=== PATIENT | male | born 1980 | race Caucasian/White ===

== ENCOUNTER 2017-08-04 19:49 | Emergency (ER) | payer MEDICAID, OTHER ==
[~2017-08-04] VITALS: Ht 177.8 cm; Wt 78.2 kg
[~2017-08-04 19:49] MED LIST: DULO20CA30 PO; GABA-531 PO; INSU100V12 SQ; SERT50TA12 PO; TEMA15CA PO
[2017-08-04 20:37] LABS: GLUCOSE,POINT OF CARE 400 MG/DL (70-110)
[2017-08-04] MEDS ORDERED: SODIUM CHLORIDE 0.9% 1,000 ML IV ONE (20:45)
[2017-08-04] MEDS ORDERED: INSULIN REGULAR, HUMAN 100 UNITS/ML IVP ONE (20:45)
[2017-08-04 21:07] LABS: EOSINOPHILS % (AUTO) 3.4 % (1.0-6.0); HEMATOCRIT 41.8 % (41-53); HEMOGLOBIN 14.1 g/dL (13.5-17.5); LYMPHOCYTES # (AUTO) 2.6 K/uL (1.0-4.8); MEAN CORPUSCULAR HEMOGLOBIN 29.9 pg (26.0-34.0); MEAN CORPUSCULAR HGB CONC 33.8 G/dL (31.0-37.0); MEAN CORPUSCULAR VOLUME 89 fL (80-100); MONOCYTES # (AUTO) 0.6 K/uL (0.1-1.0); MONOCYTES % (AUTO) 7.9 % (2.0-9.0); NEUTROPHILS # (AUTO) 3.6 K/uL (1.8-7.7); NEUTROPHILS % (AUTO) 50.7 % (40.0-70.0); PLATELET COUNT (AUTO) 282 K/uL (150-450); RED BLOOD CELL COUNT(AUTO) 4.72 MIL/uL (4.50-5.90); RED CELL DISTRIBUTION WIDTH 13.5 % (11.5-14.5)
[2017-08-04 21:27] LABS: ALANINE AMINOTRANSFERASE 33 U/L (12-78); ALBUMIN 3.6 g/dL (3.4-5.0); ALKALINE PHOSPHATASE 113 U/L (46-116); ANION GAP 10 mmol/L (8-16); ASPARTATE AMINOTRANSFERASE 25 U/L (15-37); BILIRUBIN,TOTAL 0.9 mg/dL (0.1-1.0); CALCIUM, TOTAL 9.3 mg/dL (8.8-10.5); CARBON DIOXIDE 27 mmol/L (22-29); CHLORIDE 100 mmol/L (98-107); GLOMERULAR FILTR. RATE CALC > 60 mL/min (>60); POTASSIUM 3.5 mmol/L (3.5-5.1); SODIUM SERUM 137 mmol/L (136-145); TOTAL PROTEIN, SERUM 7.6 g/dL (6.4-8.2); UREA NITROGEN, BLOOD 20 mg/dL (7-18)
[2017-08-04 21:31] LABS: GLUCOSE,RANDOM 412 mg/dL (70-110)
[2017-08-04 21:52] LABS: GLUCOSE,POINT OF CARE 113 MG/DL (70-110)
[2017-08-04 22:04] LABS: AMPHET/METH SCREEN,URINE POSITIVE (NEGATIVE); BARBITURATE SCREEN, URINE NEGATIVE (NEGATIVE); BENZODIAZEPINES SCREEN,URINE NEGATIVE (NEGATIVE); CANNABINOID SCREEN,URINE NEGATIVE (NEGATIVE); COCAINE SCREEN,URINE NEGATIVE (NEGATIVE); METHADONE SCREEN, URINE NEGATIVE (NEGATIVE); OPIATE SCREEN,URINE NEGATIVE (NEGATIVE)
[2017-08-04 22:06] LABS: PHENCYCLIDINE SCREEN,URINE NEGATIVE (NEGATIVE)
[2017-08-04 22:12] VITALS: BP 126/84
[2017-08-04 22:13] LABS: APPEARANCE,URINE CLEAR (CLEAR); BILIRUBIN,URINE NEGATIVE (NEGATIVE); GLUCOSE, URINE (UA) >=1000 mg/dL (NEGATIVE); KETONES,URINE 15 mg/dL (NEGATIVE); LEUKOCYTE ESTERASE ,URINE NEGATIVE (NEGATIVE); NITRATE,URINE NEGATIVE (NEGATIVE); OCCULT BLOOD,URINE NEGATIVE (NEGATIVE); PH,URINE 6.5 (5.0-8.0); PROTEIN,URINE NEGATIVE (NEGATIVE)
[2017-08-04 22:21] LABS: RBC,URINE 0-2 /HPF (0-2); WBC,URINE 0-2 /HPF (0-5)
[2017-08-04 22:22] LABS: BACTERIA,URINE Rare /HPF (None Seen); SQUAMOUS EPITHELIAL CELL,UR None Seen /LPF (None Seen)
== END 2017-08-04 22:22 | disposition home or self-care (01) ==
LOC: EMS 19:51
DX: F41.9 Anxiety disorder, unspecified (principal); E11.65 Type 2 diabetes mellitus with hyperglycemia; F15.10 Other stimulant abuse, uncomplicated; F32.9 Major depressive disorder, single episode, unspecified; F17.210 Nicotine dependence, cigarettes, uncomplicated; Z71.6 Tobacco abuse counseling
CPT/HCPCS: 36415; 80053; 80307; 81001; 82948; 82962; 85025; 96361; 96374; 99284; 99406; J1815; J7030

== ENCOUNTER 2017-08-06 07:52 | Emergency (ER) | payer OTHER ==
[~2017-08-06] VITALS: Ht 177.8 cm; Wt 72.7 kg
[2017-08-06 08:08] LABS: GLUCOSE,POINT OF CARE 224 MG/DL (70-110)
[2017-08-06 08:25] VITALS: BP 119/73
== END 2017-08-06 08:37 | disposition home or self-care (01) ==
LOC: EMS 07:54
DX: F32.9 Major depressive disorder, single episode, unspecified (principal); E11.9 Type 2 diabetes mellitus without complications; M79.89 Other specified soft tissue disorders; F17.210 Nicotine dependence, cigarettes, uncomplicated; Z59.0 Homelessness; Z79.4 Long term (current) use of insulin
CPT/HCPCS: 82962; 99284; 99406

== ENCOUNTER 2017-09-12 12:41 | Emergency (ER) | payer OTHER ==
[~2017-09-12] VITALS: Ht 177.8 cm; Wt 75.0 kg
[2017-09-12 12:52] LABS: GLUCOSE,POINT OF CARE 493 MG/DL (70-110)
[2017-09-12] MEDS ORDERED: SODIUM CHLORIDE 0.9% 1,000 ML IV ONE (13:00)
[2017-09-12 14:12] LABS: ANION GAP 9 mmol/L (8-16); CALCIUM, TOTAL 9.2 mg/dL (8.8-10.5); CARBON DIOXIDE 29 mmol/L (22-29); CHLORIDE 97 mmol/L (98-107); CREATININE 0.96 mg/dL (0.60-1.30); GLOMERULAR FILTR. RATE CALC > 60 mL/min (>60); SODIUM SERUM 135 mmol/L (136-145); UREA NITROGEN, BLOOD 19 mg/dL (7-18)
[2017-09-12 14:15] LABS: GLUCOSE,RANDOM 429 mg/dL (70-110)
[2017-09-12 15:38] VITALS: BP 110/87
[2017-09-12 15:38] LABS: GLUCOSE,POINT OF CARE 255 MG/DL (70-110)
[2017-09-15] MEDS ORDERED: INSU100I26 (12:57)
== END 2017-09-12 16:12 | disposition home or self-care (01) ==
LOC: EMS 12:45
DX: E11.65 Type 2 diabetes mellitus with hyperglycemia (principal); F17.210 Nicotine dependence, cigarettes, uncomplicated; F12.90 Cannabis use, unspecified, uncomplicated; F19.90 Other psychoactive substance use, unspecified, uncomplicated; Z79.4 Long term (current) use of insulin
CPT/HCPCS: 36415; 80048; 82962; 96360; 99284; J7030

== ENCOUNTER 2018-08-11 13:11 | Inpatient (IN) | payer MEDICAID, OTHER ==
[~2018-08-11] VITALS: Ht 172.7 cm; Wt 79.8 kg
[~2018-08-11 13:11] MED LIST changes: +INSU100I26
[2018-08-11] MEDS ORDERED: OXCA300T46 PO (13:33)
[2018-08-11] MEDS ORDERED: INSU100V SQ (13:33)
[2018-08-11] MEDS ORDERED: QUET25TA PO (13:33)
[2018-08-11] MEDS ORDERED: INSLAN SQ (13:33)
[2018-08-11] MEDS ORDERED: SODIUM CHLORIDE 0.9% 1,000 ML IV ONE ×2 (13:45→14:45)
[2018-08-11 14:22] LABS: BASOPHILS % (AUTO) 1.2 % (0.0-2.0); EOSINOPHILS % (AUTO) 1.3 % (1.0-6.0); HEMATOCRIT 43.8 % (41-53); HEMOGLOBIN 14.7 g/dL (13.5-17.5); LYMPHOCYTES # (AUTO) 1.4 K/uL (1.0-4.8); LYMPHOCYTES % (AUTO) 22.5 % (22.0-44.0); MEAN CORPUSCULAR HEMOGLOBIN 29.7 pg (26.0-34.0); MEAN CORPUSCULAR HGB CONC 33.6 G/dL (31.0-37.0); MEAN CORPUSCULAR VOLUME 88 fL (80-100); MONOCYTES # (AUTO) 0.3 K/uL (0.1-1.0); MONOCYTES % (AUTO) 4.9 % (2.0-9.0); NEUTROPHILS # (AUTO) 4.5 K/uL (1.8-7.7); NEUTROPHILS % (AUTO) 70.1 % (40.0-70.0); PLATELET COUNT (AUTO) 241 K/uL (150-450); RED BLOOD CELL COUNT(AUTO) 4.96 MIL/uL (4.50-5.90)
[2018-08-11 14:34] LABS: ANION GAP 14 mmol/L (8-16); CALCIUM, TOTAL 8.7 mg/dL (8.8-10.5); CARBON DIOXIDE 19 mmol/L (22-29); CHLORIDE 98 mmol/L (98-107); CREATININE 0.91 mg/dL (0.60-1.30); GLOMERULAR FILTR. RATE CALC > 60 mL/min (>60); GLUCOSE,RANDOM 365 mg/dL (70-110); POTASSIUM 4.3 mmol/L (3.5-5.1); SODIUM SERUM 131 mmol/L (136-145); UREA NITROGEN, BLOOD 18 mg/dL (7-18)
[2018-08-11 14:38] LABS: ALANINE AMINOTRANSFERASE 22 U/L (12-78); ALBUMIN 3.1 g/dL (3.4-5.0); ALKALINE PHOSPHATASE 106 U/L (46-116); ASPARTATE AMINOTRANSFERASE 14 U/L (15-37); BILIRUBIN,TOTAL 0.5 mg/dL (0.1-1.0); TOTAL PROTEIN, SERUM 6.6 g/dL (6.4-8.2)
[2018-08-11] MEDS ORDERED: INSULIN REGULAR, HUMAN 100 UNITS/ML IVP ONE (14:45)
[2018-08-11 15:39] LABS: GLUCOSE,POINT OF CARE 291 MG/DL (70-110)
[2018-08-11] MEDS ORDERED: HALOPERIDOL 5 MG TABLET PO PRN (17:00)
[2018-08-11 17:08] LABS: AMPHET/METH SCREEN,URINE POSITIVE (NEGATIVE); BARBITURATE SCREEN, URINE NEGATIVE (NEGATIVE); BENZODIAZEPINES SCREEN,URINE NEGATIVE (NEGATIVE); CANNABINOID SCREEN,URINE NEGATIVE (NEGATIVE); COCAINE SCREEN,URINE NEGATIVE (NEGATIVE); METHADONE SCREEN, URINE NEGATIVE (NEGATIVE); OPIATE SCREEN,URINE NEGATIVE (NEGATIVE)
[2018-08-11 17:09] LABS: PHENCYCLIDINE SCREEN,URINE NEGATIVE (NEGATIVE)
[2018-08-11 18:38] LABS: GLUCOSE,POINT OF CARE 243 MG/DL (70-110)
[2018-08-11 18:58] LABS: GLUCOSE,POINT OF CARE 212 MG/DL (70-110)
[2018-08-11 23:34] VITALS: BP 135/85
[2018-08-12 05:29] LABS: CHOL/HDL RATIO 6.1 (4.2-7.3); FREE T4 (FREE THYROXINE) 0.88 ng/dL (0.76-1.46); THYROID STIMULATING HORMONE 0.4 uIU/mL (0.36-3.74)
[2018-08-12 08:39] VITALS: BP 119/97
[2018-08-12] MEDS ORDERED: INSULIN LISPRO 100 UNITS/ML SQ PRN (09:00)
[2018-08-12] MEDS ORDERED: DEXTROSE 50%-WATER 25 GM/50 ML SYRINGE IVP PRN ×2 (09:00→15:45)
[2018-08-12] MEDS ORDERED: INSULIN LISPRO 100 UNITS/ML SQ ONE ×3 (12:00→15:45)
[2018-08-12] MEDS: QUEtiapine FUMARATE 25 MG TABLET PO SCH ×2 (12:00→17:12)
[2018-08-12 12:06] LABS: GLUCOMETER DEV NAME(LOC) AHU.; GLUCOSE,POINT OF CARE 429 MG/DL (70-110)
[2018-08-12 13:25] LABS: GLUCOMETER DEV NAME(LOC) AHU.; GLUCOSE,POINT OF CARE 377 MG/DL (70-110)
[2018-08-12 15:09] LABS: GLUCOMETER DEV NAME(LOC) AHU.; GLUCOSE,POINT OF CARE 411 MG/DL (70-110)
[2018-08-12 17:00] VITALS: BP 103/75
[2018-08-12] MEDS: INSULIN LISPRO 100 UNITS/ML SQ PRN ×2 (17:18→21:11)
[2018-08-12 17:21] LABS: GLUCOMETER DEV NAME(LOC) 3E.I; GLUCOSE,POINT OF CARE 256 MG/DL (70-110)
[2018-08-12] MEDS ORDERED: BENZOCAINE/MENTHOL LOZENGE MM PRN (19:15)
[2018-08-12] MEDS ORDERED: ACETAMINOPHEN 325 MG TABLET PO PRN (19:15)
[2018-08-12] MEDS ORDERED: MAG HYDROX/AL HYDROX/SIMETH ES 30 ML SUSPENSION UDCUP PO PRN (19:15)
[2018-08-12] MEDS ORDERED: IBUPROFEN 600 MG TABLET PO PRN (19:15)
[2018-08-12] MEDS ORDERED: ONDANSETRON HCL 4 MG TABLET PO PRN (19:15)
[2018-08-12] MEDS ORDERED: LOPERAMIDE HCL 2 MG CAPSULE PO PRN (19:15)
[2018-08-12] MEDS ORDERED: MAGNESIUM HYDROXIDE SUSPENSION 30 ML UDCUP PO PRN (19:15)
[2018-08-12] MEDS ORDERED: BACITRACIN 28.4 GM OINTMENT TP PRN (19:15)
[2018-08-12] MEDS ORDERED: PETROLATUM,WHITE 71 GM JELLY TP PRN (19:15)
[2018-08-12] MEDS ORDERED: CloNIDine HCL 0.1 MG TABLET PO PRN (19:15)
[2018-08-12] MEDS ORDERED: ALBUTEROL SULFATE HFA 90 MCG/PUFF 8 GM INHALER IH PRN (19:15)
[2018-08-12] MEDS ORDERED: OMEPRAZOLE 20 MG CAPSULE PO PRN (19:15)
[2018-08-12] MEDS ORDERED: DOCUSATE SODIUM 100 MG CAPSULE PO PRN (19:15)
[2018-08-12 20:32] LABS: GLUCOMETER DEV NAME(LOC) 3E.I; GLUCOSE,POINT OF CARE 272 MG/DL (70-110)
[2018-08-12] MEDS ORDERED: INSULIN HUMAN NPH-REGULAR 70/30 100 UNITS/ML SQ SCH (21:00)
[2018-08-12] MEDS: INSULIN GLARGINE,HUM.REC.ANLOG 100 UNITS/ML SQ SCH (21:10)
[2018-08-12] MEDS: SIMVASTATIN 10 MG TABLET PO SCH (21:12)
[2018-08-12] MEDS: QUEtiapine FUMARATE 100 MG TABLET PO SCH (21:12)
[2018-08-13 06:09] LABS: GLUCOMETER DEV NAME(LOC) 3E.I; GLUCOSE,POINT OF CARE 331 MG/DL (70-110)
[2018-08-13] MEDS: INSULIN LISPRO 100 UNITS/ML SQ PRN ×3 (07:11→21:05)
[2018-08-13] MEDS: QUEtiapine FUMARATE 25 MG TABLET PO SCH ×2 (08:44→16:55)
[2018-08-13] MEDS: OMEGA-3/DHA/EPA/FISH OIL 1,000 MG CAPSULE PO SCH (08:44)
[2018-08-13] MEDS: LORazepam 2 MG TABLET PO PRN ×2 (08:45→16:55)
[2018-08-13 11:06] VITALS: BP 111/81
[2018-08-13 13:33] LABS: GLUCOMETER DEV NAME(LOC) 3E.I; GLUCOSE,POINT OF CARE 166 MG/DL (70-110)
[2018-08-13 16:59] LABS: GLUCOMETER DEV NAME(LOC) 3E.I; GLUCOSE,POINT OF CARE 291 MG/DL (70-110)
[2018-08-13 17:30] VITALS: BP 95/46
[2018-08-13] MEDS: QUEtiapine FUMARATE 100 MG TABLET PO SCH (21:05)
[2018-08-13] MEDS: INSULIN GLARGINE,HUM.REC.ANLOG 100 UNITS/ML SQ SCH (21:05)
[2018-08-13] MEDS: SIMVASTATIN 10 MG TABLET PO SCH (21:05)
[2018-08-13] MEDS: ZOLPIDEM TARTRATE 10 MG TABLET PO PRN (21:06)
[2018-08-13 22:13] LABS: GLUCOMETER DEV NAME(LOC) 3E.I; GLUCOSE,POINT OF CARE 270 MG/DL (70-110)
[2018-08-14 06:19] LABS: GLUCOMETER DEV NAME(LOC) 3E.I; GLUCOSE,POINT OF CARE 272 MG/DL (70-110)
[2018-08-14] MEDS: INSULIN LISPRO 100 UNITS/ML SQ PRN ×4 (07:07→21:39)
[2018-08-14] MEDS: OMEGA-3/DHA/EPA/FISH OIL 1,000 MG CAPSULE PO SCH (09:26)
[2018-08-14] MEDS: QUEtiapine FUMARATE 25 MG TABLET PO SCH ×2 (09:26→17:04)
[2018-08-14 10:01] VITALS: BP 109/69
[2018-08-14 11:28] LABS: GLUCOMETER DEV NAME(LOC) 3E.I; GLUCOSE,POINT OF CARE 270 MG/DL (70-110)
[2018-08-14] MEDS: LORazepam 2 MG TABLET PO PRN ×2 (11:59→17:04)
[2018-08-14 17:44] LABS: GLUCOMETER DEV NAME(LOC) 3E.I; GLUCOSE,POINT OF CARE 338 MG/DL (70-110)
[2018-08-14 20:49] VITALS: BP 120/67
[2018-08-14] MEDS: SIMVASTATIN 10 MG TABLET PO SCH (21:19)
[2018-08-14] MEDS: QUEtiapine FUMARATE 100 MG TABLET PO SCH (21:19)
[2018-08-14] MEDS: INSULIN GLARGINE,HUM.REC.ANLOG 100 UNITS/ML SQ SCH (21:38)
[2018-08-14 21:48] LABS: GLUCOMETER DEV NAME(LOC) 3E.I; GLUCOSE,POINT OF CARE 192 MG/DL (70-110)
[2018-08-15 06:04] LABS: GLUCOMETER DEV NAME(LOC) 3E.I; GLUCOSE,POINT OF CARE 303 MG/DL (70-110)
[2018-08-15] MEDS: INSULIN LISPRO 100 UNITS/ML SQ PRN ×4 (07:01→21:28)
[2018-08-15] MEDS: OMEGA-3/DHA/EPA/FISH OIL 1,000 MG CAPSULE PO SCH (09:13)
[2018-08-15] MEDS: LORazepam 2 MG TABLET PO PRN ×2 (09:13→16:38)
[2018-08-15] MEDS: QUEtiapine FUMARATE 25 MG TABLET PO SCH ×2 (09:14→16:26)
[2018-08-15] MEDS: INSULIN GLARGINE,HUM.REC.ANLOG 100 UNITS/ML SQ SCH ×2 (09:26→21:26)
[2018-08-15 09:59] VITALS: BP 101/66
[2018-08-15 11:29] LABS: GLUCOMETER DEV NAME(LOC) 3E.I; GLUCOSE,POINT OF CARE 268 MG/DL (70-110)
[2018-08-15 16:23] LABS: GLUCOMETER DEV NAME(LOC) 3EX.; GLUCOSE,POINT OF CARE 253 MG/DL (70-110)
[2018-08-15 16:25] VITALS: BP 107/73
[2018-08-15] MEDS: SIMVASTATIN 10 MG TABLET PO SCH (20:47)
[2018-08-15] MEDS: QUEtiapine FUMARATE 100 MG TABLET PO SCH (20:47)
[2018-08-15 21:18] LABS: GLUCOMETER DEV NAME(LOC) 3EX.; GLUCOSE,POINT OF CARE 440 MG/DL (70-110)
[2018-08-15 22:19] LABS: GLUCOMETER DEV NAME(LOC) 3EX.; GLUCOSE,POINT OF CARE 385 MG/DL (70-110)
[2018-08-16 06:03] LABS: GLUCOMETER DEV NAME(LOC) 3EX.; GLUCOSE,POINT OF CARE 283 MG/DL (70-110)
[2018-08-16] MEDS: INSULIN LISPRO 100 UNITS/ML SQ PRN ×4 (06:38→20:10)
[2018-08-16] MEDS: OMEGA-3/DHA/EPA/FISH OIL 1,000 MG CAPSULE PO SCH (09:12)
[2018-08-16] MEDS: LORazepam 2 MG TABLET PO PRN ×2 (09:14→17:32)
[2018-08-16] MEDS: QUEtiapine FUMARATE 25 MG TABLET PO SCH ×2 (09:14→16:09)
[2018-08-16] MEDS: INSULIN GLARGINE,HUM.REC.ANLOG 100 UNITS/ML SQ SCH ×2 (09:31→20:13)
[2018-08-16 10:52] VITALS: BP 105/66
[2018-08-16 11:29] LABS: GLUCOMETER DEV NAME(LOC) 3EX.; GLUCOSE,POINT OF CARE 302 MG/DL (70-110)
[2018-08-16 16:19] LABS: GLUCOMETER DEV NAME(LOC) 3EX.; GLUCOSE,POINT OF CARE 301 MG/DL (70-110)
[2018-08-16 17:36] VITALS: BP 110/63
[2018-08-16 20:14] LABS: GLUCOMETER DEV NAME(LOC) 3EX.; GLUCOSE,POINT OF CARE 199 MG/DL (70-110)
[2018-08-16] MEDS: QUEtiapine FUMARATE 100 MG TABLET PO SCH (20:14)
[2018-08-16] MEDS: SIMVASTATIN 10 MG TABLET PO SCH (20:14)
[2018-08-16] MEDS: ZOLPIDEM TARTRATE 10 MG TABLET PO PRN (20:32)
[2018-08-17 06:04] LABS: GLUCOMETER DEV NAME(LOC) 3EX.; GLUCOSE,POINT OF CARE 376 MG/DL (70-110)
[2018-08-17] MEDS: INSULIN LISPRO 100 UNITS/ML SQ PRN ×4 (07:00→21:30)
[2018-08-17 08:05] VITALS: BP 103/71
[2018-08-17] MEDS ORDERED: INSULIN GLARGINE,HUM.REC.ANLOG 100 UNITS/ML SQ SCH (09:00)
[2018-08-17] MEDS: OMEGA-3/DHA/EPA/FISH OIL 1,000 MG CAPSULE PO SCH (09:08)
[2018-08-17] MEDS: QUEtiapine FUMARATE 200 MG TABLET PO SCH ×2 (09:08→20:10)
[2018-08-17] MEDS: LORazepam 2 MG TABLET PO PRN ×2 (09:16→16:31)
[2018-08-17 11:28] LABS: GLUCOMETER DEV NAME(LOC) 3EX.; GLUCOSE,POINT OF CARE 324 MG/DL (70-110)
[2018-08-17 16:00] VITALS: BP 109/56
[2018-08-17 16:33] LABS: GLUCOMETER DEV NAME(LOC) 3EX.; GLUCOSE,POINT OF CARE 371 MG/DL (70-110)
[2018-08-17] MEDS: SIMVASTATIN 10 MG TABLET PO SCH (20:10)
[2018-08-17 20:18] LABS: GLUCOMETER DEV NAME(LOC) 3EX.; GLUCOSE,POINT OF CARE 407 MG/DL (70-110)
[2018-08-17 20:33] LABS: GLUCOMETER DEV NAME(LOC) 3EX.; GLUCOSE,POINT OF CARE 452 MG/DL (70-110)
[2018-08-17] MEDS: ZOLPIDEM TARTRATE 10 MG TABLET PO PRN (20:49)
[2018-08-17] MEDS: INSULIN GLARGINE,HUM.REC.ANLOG 100 UNITS/ML SQ SCH (20:49)
[2018-08-17 22:19] LABS: GLUCOMETER DEV NAME(LOC) 3EX.; GLUCOSE,POINT OF CARE 455 MG/DL (70-110)
[2018-08-18 06:19] LABS: GLUCOMETER DEV NAME(LOC) 3EX.; GLUCOSE,POINT OF CARE 268 MG/DL (70-110)
[2018-08-18] MEDS: INSULIN LISPRO 100 UNITS/ML SQ PRN ×4 (06:45→20:14)
[2018-08-18] MEDS: INSULIN GLARGINE,HUM.REC.ANLOG 100 UNITS/ML SQ SCH ×2 (08:53→20:14)
[2018-08-18] MEDS: LORazepam 2 MG TABLET PO PRN ×2 (08:53→16:31)
[2018-08-18] MEDS: QUEtiapine FUMARATE 200 MG TABLET PO SCH ×2 (08:54→20:06)
[2018-08-18] MEDS: OMEGA-3/DHA/EPA/FISH OIL 1,000 MG CAPSULE PO SCH (08:54)
[2018-08-18 08:57] VITALS: BP 107/65
[2018-08-18 11:24] LABS: GLUCOMETER DEV NAME(LOC) 3EX.; GLUCOSE,POINT OF CARE 331 MG/DL (70-110)
[2018-08-18 16:23] LABS: GLUCOMETER DEV NAME(LOC) 3EX.; GLUCOSE,POINT OF CARE 347 MG/DL (70-110)
[2018-08-18 19:23] VITALS: BP 103/62
[2018-08-18] MEDS: SIMVASTATIN 10 MG TABLET PO SCH (20:06)
[2018-08-18 20:28] LABS: GLUCOMETER DEV NAME(LOC) 3EX.; GLUCOSE,POINT OF CARE 381 MG/DL (70-110)
[2018-08-18] MEDS: ZOLPIDEM TARTRATE 10 MG TABLET PO PRN (20:45)
[2018-08-19 05:39] LABS: GLUCOMETER DEV NAME(LOC) 3EX.; GLUCOSE,POINT OF CARE 261 MG/DL (70-110)
[2018-08-19] MEDS: INSULIN LISPRO 100 UNITS/ML SQ PRN ×3 (07:07→20:08)
[2018-08-19] MEDS: OMEGA-3/DHA/EPA/FISH OIL 1,000 MG CAPSULE PO SCH (08:16)
[2018-08-19] MEDS: INSULIN GLARGINE,HUM.REC.ANLOG 100 UNITS/ML SQ SCH ×2 (08:16→20:08)
[2018-08-19] MEDS: LORazepam 2 MG TABLET PO PRN ×2 (08:17→16:33)
[2018-08-19] MEDS: QUEtiapine FUMARATE 200 MG TABLET PO SCH ×2 (08:17→20:09)
[2018-08-19 10:12] VITALS: BP 105/68
[2018-08-19 11:18] LABS: GLUCOMETER DEV NAME(LOC) 3EX.; GLUCOSE,POINT OF CARE 281 MG/DL (70-110)
[2018-08-19] MEDS: SERTRALINE HCL 50 MG TABLET PO SCH (14:53)
[2018-08-19 16:32] VITALS: BP 105/52
[2018-08-19 16:38] LABS: GLUCOMETER DEV NAME(LOC) 3EX.; GLUCOSE,POINT OF CARE 316 MG/DL (70-110)
[2018-08-19] MEDS: SIMVASTATIN 10 MG TABLET PO SCH (20:02)
[2018-08-19 20:25] LABS: GLUCOMETER DEV NAME(LOC) 3EX.; GLUCOSE,POINT OF CARE 316 MG/DL (70-110)
[2018-08-20 05:29] LABS: GLUCOMETER DEV NAME(LOC) 3EX.; GLUCOSE,POINT OF CARE 223 MG/DL (70-110)
[2018-08-20] MEDS: INSULIN LISPRO 100 UNITS/ML SQ PRN ×4 (06:43→20:30)
[2018-08-20] MEDS: INSULIN GLARGINE,HUM.REC.ANLOG 100 UNITS/ML SQ SCH ×3 (08:11→21:05)
[2018-08-20] MEDS: QUEtiapine FUMARATE 200 MG TABLET PO SCH ×2 (08:12→20:25)
[2018-08-20] MEDS: SERTRALINE HCL 50 MG TABLET PO SCH (08:12)
[2018-08-20] MEDS: OMEGA-3/DHA/EPA/FISH OIL 1,000 MG CAPSULE PO SCH (08:13)
[2018-08-20 08:26] VITALS: BP 116/72
[2018-08-20] MEDS: LORazepam 2 MG TABLET PO PRN ×2 (08:27→12:35)
[2018-08-20 11:18] LABS: GLUCOMETER DEV NAME(LOC) 3EX.; GLUCOSE,POINT OF CARE 291 MG/DL (70-110)
[2018-08-20 16:23] LABS: GLUCOMETER DEV NAME(LOC) 3EX.; GLUCOSE,POINT OF CARE 374 MG/DL (70-110)
[2018-08-20 18:48] VITALS: BP 124/71
[2018-08-20 20:13] LABS: GLUCOMETER DEV NAME(LOC) 3EX.; GLUCOSE,POINT OF CARE 452 MG/DL (70-110)
[2018-08-20] MEDS ORDERED: INSULIN LISPRO 100 UNITS/ML SQ ONE (20:15)
[2018-08-20] MEDS: SIMVASTATIN 10 MG TABLET PO SCH (20:25)
[2018-08-20 21:13] LABS: GLUCOMETER DEV NAME(LOC) 3EX.; GLUCOSE,POINT OF CARE 457 MG/DL (70-110)
[2018-08-21 06:24] LABS: GLUCOMETER DEV NAME(LOC) 3EX.; GLUCOSE,POINT OF CARE 257 MG/DL (70-110)
[2018-08-21] MEDS: INSULIN LISPRO 100 UNITS/ML SQ PRN ×3 (07:01→17:12)
[2018-08-21 08:04] VITALS: BP 109/60
[2018-08-21] MEDS: OMEGA-3/DHA/EPA/FISH OIL 1,000 MG CAPSULE PO SCH (08:26)
[2018-08-21] MEDS: LORazepam 2 MG TABLET PO PRN ×2 (08:26→14:13)
[2018-08-21] MEDS: SERTRALINE HCL 50 MG TABLET PO SCH (08:26)
[2018-08-21] MEDS: QUEtiapine FUMARATE 200 MG TABLET PO SCH ×2 (08:26→20:15)
[2018-08-21] MEDS: INSULIN GLARGINE,HUM.REC.ANLOG 100 UNITS/ML SQ SCH ×2 (08:29→22:00)
[2018-08-21 11:03] LABS: GLUCOMETER DEV NAME(LOC) 3EX.; GLUCOSE,POINT OF CARE 439 MG/DL (70-110)
[2018-08-21 11:34] LABS: GLUCOMETER DEV NAME(LOC) 3EX.; GLUCOSE,POINT OF CARE 397 MG/DL (70-110)
[2018-08-21] MEDS ORDERED: INSULIN LISPRO 100 UNITS/ML SQ ONE ×2 (12:30→20:45)
[2018-08-21 16:08] LABS: GLUCOMETER DEV NAME(LOC) 3EX.; GLUCOSE,POINT OF CARE 304 MG/DL (70-110)
[2018-08-21 17:00] VITALS: BP 99/63
[2018-08-21] MEDS: SIMVASTATIN 10 MG TABLET PO SCH (20:15)
[2018-08-21 20:18] LABS: GLUCOMETER DEV NAME(LOC) 3EX.; GLUCOSE,POINT OF CARE 445 MG/DL (70-110)
[2018-08-21 22:03] LABS: GLUCOMETER DEV NAME(LOC) 3EX.; GLUCOSE,POINT OF CARE 293 MG/DL (70-110)
[2018-08-22 05:53] LABS: GLUCOMETER DEV NAME(LOC) 3EX.; GLUCOSE,POINT OF CARE 135 MG/DL (70-110)
[2018-08-22] MEDS: INSULIN LISPRO 100 UNITS/ML SQ PRN ×4 (06:05→21:11)
[2018-08-22] MEDS: QUEtiapine FUMARATE 200 MG TABLET PO SCH ×2 (08:02→20:20)
[2018-08-22] MEDS: OMEGA-3/DHA/EPA/FISH OIL 1,000 MG CAPSULE PO SCH (08:02)
[2018-08-22] MEDS: LORazepam 2 MG TABLET PO PRN ×3 (08:02→17:43)
[2018-08-22] MEDS: SERTRALINE HCL 50 MG TABLET PO SCH (08:02)
[2018-08-22] MEDS: INSULIN GLARGINE,HUM.REC.ANLOG 100 UNITS/ML SQ SCH ×2 (08:04→21:10)
[2018-08-22 08:14] LABS: GLUCOMETER DEV NAME(LOC) 3EX.; GLUCOSE,POINT OF CARE 282 MG/DL (70-110)
[2018-08-22 08:23] VITALS: BP 104/63
[2018-08-22 11:24] LABS: GLUCOMETER DEV NAME(LOC) 3EX.; GLUCOSE,POINT OF CARE 388 MG/DL (70-110)
[2018-08-22 16:59] LABS: GLUCOMETER DEV NAME(LOC) 3EX.; GLUCOSE,POINT OF CARE 226 MG/DL (70-110)
[2018-08-22 17:00] VITALS: BP 107/66
[2018-08-22] MEDS: ZOLPIDEM TARTRATE 10 MG TABLET PO PRN (20:20)
[2018-08-22] MEDS: SIMVASTATIN 10 MG TABLET PO SCH (20:20)
[2018-08-22 20:43] LABS: GLUCOMETER DEV NAME(LOC) 3EX.; GLUCOSE,POINT OF CARE 355 MG/DL (70-110)
[2018-08-23 06:13] LABS: GLUCOMETER DEV NAME(LOC) 3EX.; GLUCOSE,POINT OF CARE 160 MG/DL (70-110)
[2018-08-23] MEDS: INSULIN LISPRO 100 UNITS/ML SQ PRN ×4 (07:03→21:24)
[2018-08-23] MEDS: LORazepam 2 MG TABLET PO PRN ×2 (08:18→15:47)
[2018-08-23] MEDS: SERTRALINE HCL 50 MG TABLET PO SCH (08:18)
[2018-08-23] MEDS: QUEtiapine FUMARATE 200 MG TABLET PO SCH ×2 (08:19→20:06)
[2018-08-23] MEDS: OMEGA-3/DHA/EPA/FISH OIL 1,000 MG CAPSULE PO SCH (08:19)
[2018-08-23] MEDS: INSULIN GLARGINE,HUM.REC.ANLOG 100 UNITS/ML SQ SCH ×2 (08:21→21:25)
[2018-08-23 09:11] VITALS: BP 108/69
[2018-08-23 11:43] LABS: GLUCOMETER DEV NAME(LOC) 3EX.; GLUCOSE,POINT OF CARE 270 MG/DL (70-110)
[2018-08-23 16:39] LABS: GLUCOMETER DEV NAME(LOC) 3EX.; GLUCOSE,POINT OF CARE 234 MG/DL (70-110)
[2018-08-23 18:03] VITALS: BP 105/66
[2018-08-23] MEDS: SIMVASTATIN 10 MG TABLET PO SCH (20:06)
[2018-08-23] MEDS: ZOLPIDEM TARTRATE 10 MG TABLET PO PRN (20:06)
[2018-08-23 20:13] LABS: GLUCOMETER DEV NAME(LOC) 3EX.; GLUCOSE,POINT OF CARE 345 MG/DL (70-110)
[2018-08-24 06:34] LABS: GLUCOMETER DEV NAME(LOC) 3EX.; GLUCOSE,POINT OF CARE 168 MG/DL (70-110)
[2018-08-24] MEDS: INSULIN LISPRO 100 UNITS/ML SQ PRN ×2 (06:49→11:43)
[2018-08-24] MEDS: OMEGA-3/DHA/EPA/FISH OIL 1,000 MG CAPSULE PO SCH (08:20)
[2018-08-24] MEDS: SERTRALINE HCL 50 MG TABLET PO SCH (08:21)
[2018-08-24] MEDS: QUEtiapine FUMARATE 200 MG TABLET PO SCH (08:21)
[2018-08-24] MEDS: LORazepam 2 MG TABLET PO PRN (08:23)
[2018-08-24 08:45] VITALS: BP 110/64
[2018-08-24] MEDS: INSULIN GLARGINE,HUM.REC.ANLOG 100 UNITS/ML SQ SCH (08:55)
[2018-08-24 11:44] LABS: GLUCOMETER DEV NAME(LOC) 3EX.; GLUCOSE,POINT OF CARE 333 MG/DL (70-110)
[2018-08-24] MEDS ORDERED: QUET200T29 PO (12:12)
[2018-08-24] MEDS ORDERED: SERT50TA12 PO (12:12)
[2018-08-24] MEDS ORDERED: INSLAN SQ ×2 (13:19)
[2018-08-24] MEDS ORDERED: OMEG-135 PO (13:20)
[2018-08-24] MEDS ORDERED: SIMV-259 PO (13:20)
== END 2018-08-24 15:10 | disposition home or self-care (01) | DRG 750 ==
LOC: EMS 13:12 → AHU 22:00 → 3EI 08-12 16:17
DX: F25.1 Schizoaffective disorder, depressive type (principal); E10.65 Type 1 diabetes mellitus with hyperglycemia; R45.851 Suicidal ideations; E78.5 Hyperlipidemia, unspecified; F15.10 Other stimulant abuse, uncomplicated; F41.9 Anxiety disorder, unspecified; F90.9 Attention-deficit hyperactivity disorder, unspecified type; G47.00 Insomnia, unspecified; K59.00 Constipation, unspecified; Z59.0 Homelessness; Z79.4 Long term (current) use of insulin; Z79.899 Other long term (current) drug therapy; Z91.5 Personal history of self-harm; Z71.51 Drug abuse counseling and surveillance of drug abuser; Z28.21 Immunization not carried out because of patient refusal
CPT/HCPCS: 83036; 84439; 84443; 96361; 96374; G0378; G0480; J1815; J7030

== ENCOUNTER 2019-11-20 05:08 | Inpatient (IN) | payer MEDICAID ==
[~2019-11-20 05:08] MED LIST changes: -DULO20CA30 PO; -GABA-531 PO; +INSLAN SQ; -INSU100I26; -INSU100V12 SQ; +OMEG-135 PO; +QUET200T29 PO; +SIMV-259 PO; -TEMA15CA PO
[2019-11-20] MEDS ORDERED: HALOPERIDOL 5 MG TABLET PO PRN (09:45)
[2019-11-20 10:00] VITALS: BP 103/65
[2019-11-20 10:48] VITALS: BP 90/58
[2019-11-20] MEDS ORDERED: QUET100T PO (11:13)
[2019-11-20] MEDS ORDERED: FLUO-191 PO (11:13)
[2019-11-20] MEDS ORDERED: PRAZ1 PO (11:14)
[2019-11-20] MEDS ORDERED: PNEUMOCOCCAL VACCINE POLYVALENT 0.5 ML VIAL [PPSV23] IM ONE (11:15)
[2019-11-20] MEDS ORDERED: ATOR10TA84 PO (11:15)
[2019-11-20 11:42] LABS: GLUCOMETER DEV NAME(LOC) BV2S.; GLUCOSE,POINT OF CARE 327 MG/DL (70-110)
[2019-11-20] MEDS ORDERED: ACETAMINOPHEN 325 MG TABLET PO PRN (12:30)
[2019-11-20] MEDS ORDERED: GLUCAGON,HUMAN RECOMBINANT 1 MG VIAL IM PRN (12:30)
[2019-11-20] MEDS ORDERED: MAG HYDROX/AL HYDROX/SIMETH ES 30 ML SUSPENSION UDCUP PO PRN (12:30)
[2019-11-20] MEDS ORDERED: LOPERAMIDE HCL 2 MG CAPSULE PO PRN (12:30)
[2019-11-20] MEDS ORDERED: IBUPROFEN 600 MG TABLET PO PRN (12:30)
[2019-11-20] MEDS ORDERED: BENZOCAINE/MENTHOL LOZENGE MM PRN (12:30)
[2019-11-20] MEDS ORDERED: DOCUSATE SODIUM 100 MG CAPSULE PO PRN (12:30)
[2019-11-20] MEDS ORDERED: BACITRACIN 28.4 GM OINTMENT TP PRN (12:30)
[2019-11-20] MEDS ORDERED: ALBUTEROL SULFATE HFA 90 MCG/PUFF 8 GM INHALER IH PRN (12:30)
[2019-11-20] MEDS ORDERED: OMEPRAZOLE 20 MG CAPSULE PO PRN (12:30)
[2019-11-20] MEDS ORDERED: MAGNESIUM HYDROXIDE SUSPENSION 30 ML UDCUP PO PRN (12:30)
[2019-11-20] MEDS ORDERED: CloNIDine HCL 0.1 MG TABLET PO PRN (12:30)
[2019-11-20] MEDS ORDERED: ONDANSETRON HCL 4 MG TABLET PO PRN (12:30)
[2019-11-20] MEDS ORDERED: PETROLATUM,WHITE 28 GM JELLY TP PRN (12:30)
[2019-11-20] MEDS: FLUoxetine HCL 20 MG CAPSULE PO SCH (16:16)
[2019-11-20] MEDS: QUEtiapine FUMARATE 100 MG TABLET PO SCH (16:16)
[2019-11-20 16:24] VITALS: BP 107/62
[2019-11-20] MEDS: INSULIN LISPRO 100 UNITS/ML SQ PRN ×2 (16:29→20:39)
[2019-11-20] MEDS: INSULIN GLARGINE,HUM.REC.ANLOG 100 UNITS/ML SQ SCH (20:39)
[2019-11-20 21:10] LABS: GLUCOMETER DEV NAME(LOC) BV2S.; GLUCOSE,POINT OF CARE 289 MG/DL (70-110)
[2019-11-21 04:23] VITALS: BP 100/61
[2019-11-21 05:52] LABS: GLUCOMETER DEV NAME(LOC) BV2S.; GLUCOSE,POINT OF CARE 147 MG/DL (70-110)
[2019-11-21] MEDS: INSULIN LISPRO 100 UNITS/ML SQ PRN ×4 (06:46→21:27)
[2019-11-21 08:25] LABS: BASOPHILS % (AUTO) 0.7 % (0.0-2.0); EOSINOPHILS % (AUTO) 2.9 % (1.0-6.0); HEMOGLOBIN 13.9 g/dL (13.5-17.5); LYMPHOCYTES # (AUTO) 2.1 K/uL (1.0-4.8); LYMPHOCYTES % (AUTO) 34.1 % (22.0-44.0); MEAN CORPUSCULAR HEMOGLOBIN 30.6 pg (26.0-34.0); MEAN CORPUSCULAR HGB CONC 33.9 G/dL (31.0-37.0); MEAN CORPUSCULAR VOLUME 90 fL (80-100); MONOCYTES # (AUTO) 0.4 K/uL (0.1-1.0); MONOCYTES % (AUTO) 6.1 % (2.0-9.0); NEUTROPHILS # (AUTO) 3.5 K/uL (1.8-7.7); NEUTROPHILS % (AUTO) 56.2 % (40.0-70.0); PLATELET COUNT (AUTO) 212 K/uL (150-450); RED BLOOD CELL COUNT(AUTO) 4.53 MIL/uL (4.50-5.90); RED CELL DISTRIBUTION WIDTH 14.2 % (11.5-14.5)
[2019-11-21] MEDS: QUEtiapine FUMARATE 100 MG TABLET PO SCH (08:27)
[2019-11-21] MEDS: FLUoxetine HCL 20 MG CAPSULE PO SCH (08:27)
[2019-11-21 08:36] LABS: HEMOGLOBIN A1C 9.9 % (3.8-5.6)
[2019-11-21 08:50] LABS: ALANINE AMINOTRANSFERASE 22 U/L (12-78); ALKALINE PHOSPHATASE 71 U/L (46-116); ANION GAP 11 mmol/L (8-16); ASPARTATE AMINOTRANSFERASE 13 U/L (15-37); BILIRUBIN,TOTAL 0.3 mg/dL (0.1-1.0); CALCIUM, TOTAL 8.4 mg/dL (8.8-10.5); CARBON DIOXIDE 28 mmol/L (22-29); CHLORIDE 108 mmol/L (98-107); CHOL/HDL RATIO 3.7 (4.2-7.3); CHOLESTEROL 205 mg/dL (131-200); CREATININE 0.55 mg/dL (0.60-1.30); FREE T4 (FREE THYROXINE) 0.77 ng/dL (0.76-1.46); GLOMERULAR FILTR. RATE CALC > 60 mL/min (>60); GLUCOSE,RANDOM 135 mg/dL (70-110); HDL CHOLESTEROL 56 mg/dL (40-60); LDL CHOL (CALC.) 139 mg/dL (0-130); POTASSIUM 3.1 mmol/L (3.5-5.1); SODIUM SERUM 147 mmol/L (136-145); THYROID STIMULATING HORMONE 0.84 uIU/mL (0.36-3.74); TOTAL PROTEIN, SERUM 6.1 g/dL (6.4-8.2); TRIGLYCERIDES 51 mg/dL (15-150); UREA NITROGEN, BLOOD 19 mg/dL (7-18)
[2019-11-21 09:26] VITALS: BP 106/65
[2019-11-21] MEDS: LORazepam 2 MG TABLET PO PRN (12:29)
[2019-11-21 12:40] LABS: GLUCOMETER DEV NAME(LOC) BV2S.; GLUCOSE,POINT OF CARE 380 MG/DL (70-110)
[2019-11-21 17:08] VITALS: BP 105/63
[2019-11-21 17:25] LABS: GLUCOMETER DEV NAME(LOC) BV2S.; GLUCOSE,POINT OF CARE 280 MG/DL (70-110)
[2019-11-21 20:40] LABS: GLUCOMETER DEV NAME(LOC) BV2S.; GLUCOSE,POINT OF CARE 299 MG/DL (70-110)
[2019-11-21] MEDS: INSULIN GLARGINE,HUM.REC.ANLOG 100 UNITS/ML SQ SCH (21:27)
[2019-11-22 06:09] LABS: GLUCOMETER DEV NAME(LOC) BV2S.; GLUCOSE,POINT OF CARE 129 MG/DL (70-110)
[2019-11-22 06:29] VITALS: BP 114/64
[2019-11-22] MEDS: FLUoxetine HCL 20 MG CAPSULE PO SCH (08:11)
[2019-11-22] MEDS: QUEtiapine FUMARATE 100 MG TABLET PO SCH (08:11)
[2019-11-22] MEDS: LORazepam 2 MG TABLET PO PRN ×2 (08:14→17:10)
[2019-11-22] MEDS ORDERED: POTASSIUM CHLORIDE 20 MEQ ER TABLET PO ONE (08:15)
[2019-11-22 08:53] VITALS: BP 100/64
[2019-11-22 11:24] LABS: GLUCOMETER DEV NAME(LOC) BV2S.; GLUCOSE,POINT OF CARE 317 MG/DL (70-110)
[2019-11-22] MEDS: INSULIN LISPRO 100 UNITS/ML SQ PRN ×3 (11:45→21:24)
[2019-11-22 16:20] VITALS: BP 100/65
[2019-11-22 16:22] LABS: GLUCOMETER DEV NAME(LOC) BV2S.; GLUCOSE,POINT OF CARE 106 MG/DL (70-110)
[2019-11-22] MEDS: MetFORMIN HCL 500 MG TABLET PO SCH (17:00)
[2019-11-22 17:43] LABS: GLUCOMETER DEV NAME(LOC) BV2S.; GLUCOSE,POINT OF CARE 435 MG/DL (70-110)
[2019-11-22] MEDS ORDERED: GLUCAGON,HUMAN RECOMBINANT 1 MG VIAL IM PRN (18:00)
[2019-11-22 19:13] LABS: GLUCOMETER DEV NAME(LOC) BV2S.; GLUCOSE,POINT OF CARE 316 MG/DL (70-110)
[2019-11-22 20:20] LABS: GLUCOMETER DEV NAME(LOC) BV2S.; GLUCOSE,POINT OF CARE 168 MG/DL (70-110)
[2019-11-22] MEDS: INSULIN GLARGINE,HUM.REC.ANLOG 100 UNITS/ML SQ SCH (21:24)
[2019-11-22] MEDS: ZOLPIDEM TARTRATE 10 MG TABLET PO PRN (21:46)
[2019-11-23 01:00] VITALS: BP 106/72
[2019-11-23] MEDS: LORazepam 2 MG TABLET PO PRN ×2 (01:05→13:04)
[2019-11-23] MEDS: INSULIN LISPRO 100 UNITS/ML SQ PRN ×4 (06:42→21:16)
[2019-11-23] MEDS: MetFORMIN HCL 500 MG TABLET PO SCH ×2 (06:48→17:05)
[2019-11-23] MEDS: FLUoxetine HCL 20 MG CAPSULE PO SCH (08:02)
[2019-11-23] MEDS: QUEtiapine FUMARATE 100 MG TABLET PO SCH (08:02)
[2019-11-23 08:04] LABS: BASOPHILS % (AUTO) 0.7 % (0.0-2.0); EOSINOPHILS % (AUTO) 3.6 % (1.0-6.0); HEMATOCRIT 40.4 % (41-53); HEMOGLOBIN 13.5 g/dL (13.5-17.5); LYMPHOCYTES # (AUTO) 2.2 K/uL (1.0-4.8); LYMPHOCYTES % (AUTO) 35.4 % (22.0-44.0); MEAN CORPUSCULAR HEMOGLOBIN 30.7 pg (26.0-34.0); MEAN CORPUSCULAR HGB CONC 33.5 G/dL (31.0-37.0); MEAN CORPUSCULAR VOLUME 92 fL (80-100); MONOCYTES # (AUTO) 0.4 K/uL (0.1-1.0); MONOCYTES % (AUTO) 6.2 % (2.0-9.0); NEUTROPHILS # (AUTO) 3.3 K/uL (1.8-7.7); NEUTROPHILS % (AUTO) 54.1 % (40.0-70.0); PLATELET COUNT (AUTO) 193 K/uL (150-450); RED CELL DISTRIBUTION WIDTH 13.9 % (11.5-14.5)
[2019-11-23 08:23] LABS: ALANINE AMINOTRANSFERASE 21 U/L (12-78); ALBUMIN 3.1 g/dL (3.4-5.0); ALKALINE PHOSPHATASE 64 U/L (46-116); ANION GAP 5 mmol/L (8-16); ASPARTATE AMINOTRANSFERASE 6 U/L (15-37); BILIRUBIN,TOTAL 0.4 mg/dL (0.1-1.0); CALCIUM, TOTAL 8.9 mg/dL (8.8-10.5); CARBON DIOXIDE 32 mmol/L (22-29); CHLORIDE 103 mmol/L (98-107); CREATININE 0.59 mg/dL (0.60-1.30); GLOMERULAR FILTR. RATE CALC > 60 mL/min (>60); GLUCOSE,RANDOM 144 mg/dL (70-110); POTASSIUM 3.5 mmol/L (3.5-5.1); SODIUM SERUM 140 mmol/L (136-145); TOTAL PROTEIN, SERUM 5.9 g/dL (6.4-8.2); UREA NITROGEN, BLOOD 15 mg/dL (7-18)
[2019-11-23 09:22] VITALS: BP 110/70
[2019-11-23 11:33] LABS: GLUCOMETER DEV NAME(LOC) BV2S.; GLUCOSE,POINT OF CARE 146 MG/DL (70-110)
[2019-11-23 11:33] LABS: GLUCOMETER DEV NAME(LOC) BV2S.; GLUCOSE,POINT OF CARE 268 MG/DL (70-110)
[2019-11-23 16:42] VITALS: BP 100/68
[2019-11-23 20:15] LABS: GLUCOMETER DEV NAME(LOC) BV2S.; GLUCOSE,POINT OF CARE 277 MG/DL (70-110)
[2019-11-23] MEDS: ZOLPIDEM TARTRATE 10 MG TABLET PO PRN (21:00)
[2019-11-23] MEDS: INSULIN GLARGINE,HUM.REC.ANLOG 100 UNITS/ML SQ SCH (21:16)
[2019-11-24 00:49] VITALS: BP 112/68
[2019-11-24] MEDS: MetFORMIN HCL 500 MG TABLET PO SCH (06:26)
[2019-11-24] MEDS: INSULIN LISPRO 100 UNITS/ML SQ PRN ×2 (06:27→10:51)
[2019-11-24 06:36] LABS: GLUCOMETER DEV NAME(LOC) BV2S.; GLUCOSE,POINT OF CARE 259 MG/DL (70-110)
[2019-11-24] MEDS: QUEtiapine FUMARATE 100 MG TABLET PO SCH (08:37)
[2019-11-24] MEDS: FLUoxetine HCL 20 MG CAPSULE PO SCH (08:37)
[2019-11-24 09:40] VITALS: BP 109/57
[2019-11-24] MEDS ORDERED: METF-960 PO (10:55)
[2019-11-24 11:52] LABS: GLUCOMETER DEV NAME(LOC) BV2S.; GLUCOSE,POINT OF CARE 208 MG/DL (70-110)
== END 2019-11-24 13:35 | disposition home or self-care (01) | DRG 750 ==
LOC: B2S 10:39
PROVIDERS: ADMIT Psychiatry & Neurology Psychiatry; ATTEND Psychiatry & Neurology Child & Adolescent Psychiatry
DX: F25.1 Schizoaffective disorder, depressive type (principal); E11.9 Type 2 diabetes mellitus without complications; E78.5 Hyperlipidemia, unspecified; F15.10 Other stimulant abuse, uncomplicated; Z79.899 Other long term (current) drug therapy
CPT/HCPCS: 83036; 84439; 84443; 87081; J1815